=== PATIENT | male | born 1995 | race Caucasian/White ===

== ENCOUNTER → 2018-01-24 14:44 | Outpatient (CLI) | payer BC, SELFPAY ==
[2018-01-24 15:21] LABS: Basophils # 0.1 K/mm3 (0-0.2); Basophils % 0.3 % (0.1-2.0); Eosinophils % 0.2 % (0.1-12.0); Hematocrit 40.1 % (42.0-52.0); Hemoglobin 13.6 g/dL (14.1-18.0); Lymphocytes # 1.9 K/mm3 (0.7-4.5); Lymphocytes % 9.1 K/mm3 (10-50); Mean Corpuscular HGB Conc 33.8 g/dL (31.8-35.4); Mean Corpuscular Hemoglobin 29.5 pg (27.0-31.2); Mean Corpuscular Volume 87.4 fl (80-94); Mean Platelet Volume 6.8 fl (7.4-10.4); Monocytes # 1.1 K/mm3 (0.1-1.0); Monocytes % 5.3 % (1.7-9.3); Neutrophils # 17.3 K/mm3 (1.8-7.8); Neutrophils % 85.1 % (37.0-80.0); Platelet Count 237 K/mm3 (142-424); Red Blood Count 4.59 M/mm3 (4.60-6.20); Red Cell Distribution Width 12.8 % (11.5-17.5); White Blood Count 20.3 K/mm3 (4.8-10.8)
[2018-01-24 15:48] LABS: MANUAL DIFFERENTIAL MANUAL DIFFERENTIAL (MANUAL DIFF)
[2018-01-24 16:00] LABS: Alanine Aminotransferase 32 U/L (12-78); Albumin Level 4.2 gm/dL (3.4-5.0); Albumin/Globulin Ratio 1.4 (1.1-1.8); Alkaline Phosphatase 87 U/L (46-116); Aspartate Amino Transferase 18 U/L (15-37); Blood Urea Nitrogen 9 mg/dL (7-18); Carbon Dioxide 25 mmol/L (21.0-32.0); Chloride 98 mmol/L (98-107); Creatinine,Serum 0.76 mg/dL (0.70-1.30); Estimated Glomerular Filt Rate 126 ml/min (>60); GFR (African American) 152 ML/MIN (>60); Globulin 3.1 gm/dl (1.3-3.2); Glucose 80 mg/dL (74-106); Sodium 137 mmol/L (136-145); Total Protein,Serum 7.3 gm/dL (6.4-8.2)
[2018-01-24 18:17] LABS: Lymphocytes % 10 % (10-50); Monocytes % 3 % (2-9); Neutrophils % 86 % (42-76); Platelet Estimate Normal; Total Cells Counted 100
[2018-01-24 18:18] LABS: RBC Morphology Normal
[2018-01-26 18:12] LABS: EBV Ab VCA, IgG 61.9 U/mL (0.0-17.9); EBV Ab VCA, IgM <36.0 U/mL (0.0-35.9)
== END ==
PROVIDERS: PCP Nurse Practitioner Family; Visit Provider Nurse Practitioner Family
DX: J02.9 Acute pharyngitis, unspecified (principal); R50.9 Fever, unspecified
CPT/HCPCS: 36415; 80053; 85007; 85025; 86665

== ENCOUNTER → 2018-06-14 09:33 | Outpatient (CLI) | payer OTHER, BC, SELFPAY ==
--- NOTE | 2018-06-14 09:50 | XR_ITS ---
XR orbit bilateral min 4V HISTORY: History of metallic foreign body in the eyes. 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 There are 2 small opacities in the right aspect of the frontal sinus and may be due to osteomas IMPRESSION: No radio opaque orbital foreign body identified
--- NOTE | 2018-06-14 10:04 | MR_ITS ---
MR thoracic spine wo con HISTORY: Thoracic spine pain. Pain at base of neck. Pain radiating down LT arm. Numbness in LT fingertips. Pain rotating down LT arm. Numbness in LT fingertips. Pain in LT forearm. Weakness in LT arm. No trauma. Headache. Pain with extension of neck. ITS.REASON: CERVICAL PAIN, PAIN IN THORACIC SPINE ORDERING PHYSICIAN: Hilda Moreira PATIENT AGE: 23 years Comparison: None TECHNIQUE: Standard multiplanar multiecho sequences are performed without contrast. 3-D MIP and myelographic images are also rendered and reviewed FINDINGS: There is normal alignment. No fracture or dislocation. Spinal cord has an unremarkable appearance. There is mild degenerative disc disease at T9-T10. No disc herniation canal stenosis or foraminal stenosis or other significant anomalies. IMPRESSION: Mild degenerative disc disease T9-T10 otherwise negative MRI of the thoracic spine
--- NOTE | 2018-06-14 10:04 | MR_ITS ---
MR cervical spine wo con, MR 3-d myelogram/MRCP HISTORY: Pain at base of neck. Pain radiating down LT arm. Numbness in LT finger tips. Pain in forearm. Weakness in LT arm. Headache. Pain in neck with extension into the upper extremity. ITS.REASON: CERVICAL PAIN, PAIN IN THORACIC SPINE ORDERING PHYSICIAN: Hilda Moreira PATIENT AGE: 23 years Comparison: None TECHNIQUE: Standard multiplanar multiecho sequences are performed without contrast. 3-D MIP and myelographic images are also rendered and reviewed FINDINGS: There is normal alignment. The craniocervical junction has an unremarkable appearance. The disc spaces are well-preserved. No canal stenosis. No significant disc bulge or degenerative change. No disc herniation. The cervical cord has an unremarkable appearance. IMPRESSION: Negative MRI of the cervical spine
== END ==
PROVIDERS: PCP Nurse Practitioner Family; Visit Provider Nurse Practitioner Family
DX: M54.2 Cervicalgia (principal); M54.6 Pain in thoracic spine; H05.53 Retained (old) foreign body following penetrating wound of bilateral orbits
CPT/HCPCS: 70200; 72141; 72146; 76376

== ENCOUNTER → 2018-07-01 14:47 | Outpatient (POV) | payer BC, SELFPAY ==
[2018-07-01 15:06] VITALS: BP 130/77; PULSE 89; RESP 18; O2SAT 98
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
== END ==
PROVIDERS: PCP Nurse Practitioner Family; Visit Provider Clinical Nurse Specialist Family Health
DX: M50.10 Cervical disc disorder with radiculopathy, unspecified cervical region (principal)
CPT/HCPCS: 99202

== ENCOUNTER → 2018-07-23 08:53 | Outpatient (POV) | payer BC, SELFPAY ==
[2018-07-23 09:11] VITALS: BP 149/93; PULSE 103; RESP 18; O2SAT 98; BMI 22.1
--- NOTE | 2018-07-23 09:16 | P.CONS_ITS ---
[facility] Pain Management SOAP Note Subjective:: Patient is a pleasant 23-year-old white male who presents today for follow-up. Patient states that he has a episode today. Patient began to have weakness and shaking along with dilated pupils and increased heart rate. Patient states that he started having numbness and tingling in his hands. He states his pain was a 5 out of 10 however it shot up to an 8 out of 10 after this. Patient does have minimal pathology. He did have an epidural injection on Sunday. ROS General: no recent weight change, no fever, no sleep disturbances Respiratory: no cough, no shortness of air, no recurring pulmonary infections Cardiovascular/Peripheral Vascular: No chest pain, No palpitations, no edema, no shortness of breath. Gastrointestinal: no incontinence, normal bowel movements reported Genitourinary: no incontinence Musculoskeletal: Neck pain, right arm pain Psychiatric: Anxiety Neurological: [denies weakness in extremities], [denies balance issues] Objective:: Physical Exam General: Alert and oriented x3, no acute distress, pleasant and cooperative, [on room air] Lungs: Resps E/U, Symmetrical chest expansion, Eyes: PERRL Musculoskeletal: Flexion and extension of cervical spine somewhat guarded secondary to pain, deep tendon reflexes normal, strength in upper and lower extremities [5/5], normal gait noted, palpable trigger points cervical paraspinous and bilateral trapezius Neurological: speech clear, sports medicine specialist equal, no gross sensory deficits Assessment:: Degenerative disc disease cervical spine with cervical radiculopathy symptoms, nerve pain Plan:: We will start the patient on Cymbalta 30 mg 1 p.o. daily I will follow-up with him in 1 week reassess his symptoms at that time. He is been instructed to call the office if he has any issues prior to his next appointment. Dr. Sullivan has reviewed this note and agrees with this plan of care. This note was dictated using voice recognition software and may contain errors or omissions
== END ==
PROVIDERS: PCP Nurse Practitioner Family; Visit Provider Clinical Nurse Specialist Family Health
DX: M50.10 Cervical disc disorder with radiculopathy, unspecified cervical region (principal); M79.2 Neuralgia and neuritis, unspecified
CPT/HCPCS: 99212

== ENCOUNTER 2018-07-25 15:00 | Outpatient (RCR) | payer BC, SELFPAY ==
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
== END 2018-07-25 15:05 | disposition home or self-care (01) ==
LOC: PT 15:00
PROVIDERS: Visit Provider Nurse Practitioner Family
DX: M54.2 Cervicalgia (principal); M54.6 Pain in thoracic spine
CPT/HCPCS: 97010; 97012; 97014; 97035; 97110; 97140; 97163; 97164; G0283

== ENCOUNTER 2022-07-08 06:15 | Emergency (ER) | payer OTHER, SELFPAY ==
[2022-07-08 06:18] VITALS: BMI 21.5
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
[2022-07-08 06:19] VITALS: BP 124/84; PULSE 111; RESP 16; TEMP 36.9; O2SAT 98
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
--- NOTE | 2022-07-08 06:30 | PC.NURSE ---
patient gone to CT at this time.
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
[2022-07-08 06:34] LABS: Chloride 104 mmol/L (98-107); Potassium 3.6 mmoL/L (3.5-5.1); Sodium 141 mmol/L (136-145)
[2022-07-08 06:35] LABS: Basophils # 0.1 K/mm3 (0-0.2); Basophils % 0.7 % (0.1-2.0); Eosinophils # 0.1 K/mm3 (0.0-0.4); Eosinophils % 0.6 % (0.1-12.0); Hematocrit 48.8 % (42.0-52.0); Hemoglobin 15.9 g/dL (14.1-18.0); Lymphocytes # 1.6 K/mm3 (0.7-4.5); Mean Corpuscular HGB Conc 32.7 g/dL (31.8-35.4); Mean Corpuscular Hemoglobin 29.8 pg (27.0-31.2); Mean Corpuscular Volume 91.4 fl (80-94); Monocytes # 0.4 K/mm3 (0.1-1.0); Monocytes % 3.1 % (1.7-9.3); Neutrophils # 11.9 K/mm3 (1.8-7.8); Neutrophils % 84.6 % (37.0-80.0); Platelet Count 287 K/mm3 (142-424); Red Blood Count 5.35 M/mm3 (4.60-6.20); Red Cell Distribution Width 13.3 % (11.5-17.5); White Blood Count 14.1 K/mm3 (4.8-10.8)
[2022-07-08 06:36] LABS: Blood Urea Nitrogen 8 mg/dl (9-20); Creatinine Clearance Estimated 131 mL/min (50-200); Estimated Glomerular Filt Rate 114 ml/min (>60); GFR (African American) 138 ML/MIN (>60)
[2022-07-08 06:37] LABS: Alanine Aminotransferase 50 U/L (12-78); Albumin Level 4.9 g/dl (3.5-5.0); Albumin/Globulin Ratio 1.6 (1.1-1.8); Alkaline Phosphatase 70 U/L (38-126); Anion Gap 17.6 mEq/L (5-15); Aspartate Amino Transferase 40 U/L (17-59); Bilirubin,Total 0.2 mg/dl (0.2-1.3); Calcium 8.7 mg/dl (8.4-10.2); Carbon Dioxide 23 mmol/L (22.0-30.0); Ethyl Alcohol 263 mg/dl (0-10); Globulin 3.1 g/dL (1.3-3.2); Glucose 97 mg/dl (74-100)
[2022-07-08 06:40] VITALS: BP 125/82; PULSE 107; RESP 14; O2SAT 98
[2022-07-08 06:44] VITALS: BMI 21.5
[2022-07-08 07:00] VITALS: BP 123/76; PULSE 122; O2SAT 98
[2022-07-08 08:02] VITALS: BP 136/97; PULSE 100; RESP 16; TEMP 37.1
== END 2022-07-08 08:03 | disposition home or self-care (01) ==
PROVIDERS: Emergency Provider Emergency Medicine; PCP Nurse Practitioner Family
DX: S14.3XXA Injury of brachial plexus, initial encounter (principal); S06.9X9A Unspecified intracranial injury with loss of consciousness of unspecified duration, initial encounter; V49.10XA Passenger injured in collision with unspecified motor vehicles in nontraffic accident, initial encounter
CPT/HCPCS: 70450; 71045; 72125; 72170; 80053; 85025; 96374; 99285